=== PATIENT | female | born 1995 | race Caucasian/White ===

== ENCOUNTER 2017-02-14 23:03 | Emergency (ER) | payer OTHER ==
[~2017-02-14] VITALS: Ht 166.4 cm; Wt 74.3 kg
[~2017-02-14 23:03] MED LIST: BCPILLS PO
[2017-02-14 23:15] VITALS: TEMP 37.1; Ht 166.4 cm; Wt 74.3 kg
--- NOTE | 2017-02-15 00:28 | EMERGENCY ROOM VISIT NOTE ---
History First contact with patient: 23:44 Chief Complaint: LEG PAIN,LEG INJURY Stated Complaint: LEG INJURY, PAIN, SWELLING, NUMBNESS History of Present Illness The patient is a 21 year old female who presents to the Emergency Room with complaints of left leg pain after being thrown off of a horse into a wall. The patient reports paresthesias extending into the left lateral ankle and foot region. She rates her discomfort a 7 out of 10 with weightbearing, and rates her pain a 3 out of 10 when sitting. The patient believes that she did hit her head, but was wearing a helmet and denies any other significant injuries from this incident. The patient has not taken any medications for her pain. Review of Systems 10 system review was performed and was negative except for pertinent positives and negatives as indicated in history of present illness Past Medical/Surgical History Medical Problems: (1) Mononucleosis Family History Patient reports no known family medical history. Social History Smoking Status: Never Smoker Alcohol Use: occasionally Drug Use: none Marital Status: single Housing Status: lives with roommate Occupation Status: [employer] student Current/Historical Medications Scheduled Control Pills ( Control Pills), 1 TAB PO DAILY Physical Exam Vital Signs Date Time Temp Pulse Resp B/P (MAP) Pulse Ox O2 Delivery O2 Flow Rate FiO2 02/14/17 23:15 37.1 100 18 150/89 97 Room Air Physical Exam CONSTITUTIONAL: Healthy and well nourished. Alert and oriented X 3 with positive affect. Patient does not appear in any acute distress. HEENT: Normocephalic, atraumatic. Pupils equal, round and reactive. NECK: Full active range of motion without discomfort. RESPIRATORY: Clear to auscultation bilaterally with no wheezing, crackles, rhonchi or stridor. CARDIOVASCULAR: Regular rate and rhythm with no murmurs, rubs or gallops. GASTROINTESTINAL: Bowel sounds present in all quadrants. Soft and nontender to palpation. MUSCULOSKELETAL: Examination shows generalized tenderness to palpation of the mid lateral and distal leg and ankle region. Negative anterior draw. No focal tenderness over the medial malleolus or deltoid ligament, dorsal foot, metatarsals, phalanges, calcaneus or Achilles tendon. She has full flexion and extension of the knee without discomfort with normal ligamentous exam. Distal pulses are intact. INTEGUMENTARY: No rash or other significant dermatologic conditions noted. NEUROLOGIC: Left foot and toes are sensory intact. Medical Decision & Procedures ER Provider Diagnostic Interpretation: My interpretation of left leg x-rays confirms a nondisplaced transverse distal fibular fracture. Radiologist report is pending. X-rays were also reviewed with Dr. Marinelli, attending physician. ED Course Patient history and physical exam were performed. Nurse's notes were reviewed. Vital signs were reviewed and were normal. The patient refused any analgesics. X-rays of the left leg confirms a nondisplaced distal fibular fracture. A posterior Ortho-Glass splint and crutches were applied. Neurovascular check after splint placement was normal. The patient was encouraged to intermittently apply ice and elevate the leg for swelling. Ibuprofen and Tylenol in alternating fashion as needed for additional pain relief. The patient was provided contact information for [facility] for follow-up. The patient was happy with plan of care, voiced understanding of all discharge instructions, and denied any significant pain at the time of discharge. Medical Decision Medication Reconcilliation Current Medication List: was personally reviewed by me Blood Pressure Screening Patient's blood pressure: Normal blood pressure Impression Primary Impression: Closed left fibular fracture Additional Impression: Fall from horse Departure Information Dispostion Home / Self-Care Referrals Vladimir Comer MD Forms HOME CARE DOCUMENTATION FORM, IMPORTANT VISIT INFORMATION Patient Instructions My [facility] Additional Instructions Ice and elevate leg for swelling and pain. Ibuprofen 800 mg and/or Tylenol 1000 mg every 8 hours. You may also alternate these medications for more effective pain relief: Ibuprofen --4 HRS--> Tylenol --4 HRS--> ibuprofen --4 HRS--> Tylenol .... Keep splint dry. Do not remove splint unless it catches on fire. Follow-up with [facility] (Dr. Comer) or other orthopedic surgeon for further evaluation and treatment - call for appointment. Problem Qualifiers Primary Impression: Closed left fibular fracture Encounter type: initial encounter Fibula location: shaft Fracture morphology: transverse Fracture alignment: nondisplaced Qualified Codes: S82.425A - Nondisplaced transverse fracture of shaft of left fibula, initial encounter for closed fracture Additional Impression: Fall from horse Encounter type: initial encounter Qualified Codes: V80.010A - Animal-rider injured by fall from or being thrown from horse in noncollision accident, initial encounter
[2017-02-15 00:47] VITALS: BP 135/87; PULSE 82; O2SAT 99
--- NOTE | 2017-02-15 06:50 | DIAGNOSTIC IMAGING REPORT ---
L TIBIA/FIBULA 2 VIEWS ROUTINE HISTORY: 21 years-old Female L leg pain acute left leg pain status post horse trying injury COMPARISON: None available TECHNIQUE: 2 views of the left tibia and fibula FINDINGS: There is no acute fracture, dislocation or significant degenerative changes. Soft tissues are unremarkable without opaque foreign body. IMPRESSION: No acute fracture or dislocation. The above report was generated using voice recognition software. It may contain grammatical, syntax or spelling errors. Electronically signed by: Ant Merritt M.D. 02/15/2017 6:48 AM Dictated Date/Time: 02/15/2017 6:47 AM
== END 2017-02-15 00:50 | disposition home or self-care (01) ==
LOC: C.EDB 23:04 → C.EDA 02-15 00:50
DX: S82.425A Nondisplaced transverse fracture of shaft of left fibula, initial encounter for closed fracture (principal); V80.010A Animal-rider injured by fall from or being thrown from horse in noncollision accident, initial encounter; W22.09XA Striking against other stationary object, initial encounter; Z79.3 Long term (current) use of hormonal contraceptives